=== PATIENT | female | born 1990 | race African-American/Black ===

== ENCOUNTER 2018-12-24 10:51 | Emergency (ER) | payer SELFPAY ==
[~2018-12-24] VITALS: Ht 167.6 cm; Wt 65.0 kg
[2018-12-24] MEDS ORDERED: IBUPROFEN 800MG TABLET PO ONE (11:45)
[2018-12-24 12:00] VITALS: BP 122/78
== END 2018-12-24 12:00 | disposition home or self-care (01) ==
LOC: ER 10:51
DX: S16.1XXA Strain of muscle, fascia and tendon at neck level, initial encounter (principal); S90.01XA Contusion of right ankle, initial encounter; Y93.B9 Activity, other involving muscle strengthening exercises; Y92.89 Other specified places as the place of occurrence of the external cause
CPT/HCPCS: 99282